=== PATIENT | female | born 1965 | race African-American/Black ===

== ENCOUNTER → 2020-11-27 01:20 | Outpatient (CLI) | payer BC, SELFPAY ==
[2020-11-28 14:16] LABS: SARS-CoV-2 RNA PCR Negative
--- NOTE | 2020-12-01 11:49 | W.PM.PROC2 ---
Procedure Note - Detailed Date of Procedure 12/01/20 Pre-op Diagnosis GSI Post-op Diagnosis same Procedure Performed Transobturator taping with cystoscopy Surgeon Rigoberto Maharaj MD Anesthesia general Findings intact bladder and patent ureters bilaterally Description of Procedure Patient was taken to the operating room with IV running and placed in a dorsal lithomtomy position. A ogdoy cather was placed to drain the bladder. attention was then turned to the bladder sling and which 2 Allis clamps were placed along the anterior vaginal wall beginning 1cm below the urethra and 3cm apart vertically a 2cm incision was made between Allis clamps on anterior vaginal mucosa in the periurethral tissue was dissected with the Metzenbaum scissors and blunt dissection to the level of the pubic bone on either side the midline. The obturator foramen on the right portions of the vagina well palpated bilaterally and injected with 1% lidocaine with epinephrine. And marked with a sterile marker. Stab incision was made in both areas. The obturator device hook was then introduced through the outer obturator foramen through the membrane entering alongside the bladder and urethra pushing the bladder and urethra out of the way and exiting through the vagina. The same procedure occurred on the left side. Cystoscope was performed with the 70 degree scope and the bladder dome was noted the posterior portion of the bladder with no visual suture noted. the obturator devices were manipulated and no areas of punctation were noted in the bladder arreola bilaterally. And there were bilateral ureteral jets noted with an intact urethra. The cystoscope was removed. The godoy was replaced. The vaginal taping was attached to the obturator removed and pulled through under proper tension with spacing with Gomez scissors. the vaginal mucosa was then closed with 2 0 Vicryl suture in a running locked fashion. The stab wound incisions were covered with surgical glue. The godoy catheter was remoeved. Estimated Blood Loss 20 Packing No Pathology none sent Condition stable Disposition PACU
== END ==
PROVIDERS: PCP Family Medicine; Visit Provider Obstetrics & Gynecology
DX: Z01.812 Encounter for preprocedural laboratory examination (principal); Z20.822 Contact with and (suspected) exposure to COVID-19
CPT/HCPCS: C9803; U0003; U0005

== ENCOUNTER 2020-11-27 08:15 | Outpatient (CLI) | payer BC, SELFPAY ==
--- NOTE | 2020-11-27 08:15 | ECG_ITS ---
Measurements Intervals [place] Rate: 77 P: 64 FL: 148 QRS: 23 QRSD: 90 T: 1 QT: 350 QTc: 397 Interpretive Statements SINUS RHYTHM DELAYED PRECORDIAL R/S TRANSITION BASELINE ARTIFACT- I, III, AVL BORDERLINE ECG Electronically Signed On 11-27-2020 8:34:04 CDT by Venancio Umana D.O.
== END 2020-11-27 08:16 | disposition home or self-care (01) ==
PROVIDERS: PCP Family Medicine; Visit Provider Obstetrics & Gynecology
DX: Z01.818 Encounter for other preprocedural examination (principal); E78.5 Hyperlipidemia, unspecified
CPT/HCPCS: 93005

== ENCOUNTER 2020-11-30 00:56 | Day surgery (SDC) | payer BC, SELFPAY ==
[2020-11-16 09:24] VITALS: BMI 32.2
[2020-11-30] VITALS (10 sets, daily range): BP systolic 110–150; BP diastolic 59–87; PULSE 62–89; RESP 12–16; TEMP 35.9–36.3; O2SAT 96–100; BMI 32.7
--- NOTE | 2020-11-30 09:27 | P.HP_ITS ---
History of Present Illness History of Present Illness Consent: Risks, benefits, and alternatives have been discussed and questions answered. Patient agrees to proceed with procedure. Chief complaint: stress incontinence Narrative: Jada Yates is a 54 year old female who presented to the office with leakage of urine with activities and cugh laughing and sneezing. Patient reports with weight loss and exercise gotten worse. [facility] Past Medical History Medical History (Updated 11/30/20 @ 09:37 by Rigoberto Maharaj MD) Asthma GSI (genuine stress incontinence), female Surgical History Surgical History (Updated 11/30/20 @ 09:37 by Rigoberto Maharaj MD) H/O: History of laparotomy History of sleeve gastrectomy S/P hysterectomy Social History Social History Smoking status: Never smoker Alcohol intake: current Alcohol use details: 1-2X/MONTH Substance use: never Substance use type: does not use Living arrangements: with family Spiritual care concerns: No Meds Home Medications and Allergies Home Medications Medication Instructions Recorded Confirmed Type albuterol 180 mcg INHALATION Q4H PRN 11/16/20 11/16/20 History atorvastatin 10 mg PO DAILY 11/16/20 11/16/20 History cetirizine [Zyrtec] 10 mg PO DAILY 11/16/20 11/16/20 History fluticasone propion-salmeterol 1 inh INHALATION BID 11/16/20 11/16/20 History [Advair Diskus] fluticasone propionate [Flonase] 2 spray INTRANASAL DAILY 11/16/20 11/16/20 History multivitamin 1 tablet PO DAILY 11/16/20 11/16/20 History omeprazole 40 mg PO BID 11/16/20 11/16/20 History tramadol 50 mg PO Q6H PRN 11/16/20 11/16/20 History Allergies Allergy/AdvReac Type Severity Reaction Status Date / Time NSAIDS (Non-Steroidal AdvReac Other Verified 11/16/20 09:46 Anti-Inflamma Exam Const: General: well developed and well groomed Nutritional Appearance: well nourished Orientation/consciousness: patient oriented x3 Resp: Auscultation: clear to auscultation bilaterally Cardio: Rate: regular rate Rhythm: regular rhythm GI: GI Palp: Yes Soft to palpation : Speculum Exam - Vagina: normal appearance of the vagina Speculum Exam - Cervix: Cervix absent Bimanual exam- vagina & uterus: uterus absent Assessment and Plan Assessment and plan (1) GSI (genuine stress incontinence), female: Code(s): N39.3 - Stress incontinence (female) (male) Status: Acute Assessment and Plan: scheduled for a transobturator taping with cystoscopy. Risk and benefits reviewed in detail. Patient agrees to proceed.
--- NOTE | 2020-11-30 11:20 | WPDANESEPPF ---
Anes - Initial Pre Proc Eval Procedure: Operation Date: 11/30/20 12:00 Proposed Procedures p Trans Obturator Taping - Rigoberto Maharaj MD Date/Time: 11/30/20 11:20 Surgeon: Rigoberto Maharaj MD Pre Op Diagnosis: stress incontinence Patient Data Age: 54 Gender: F Height: 1.57 m Weight: 81.2 kg Last Vital Signs Temp 35.9 C L 11/30/20 10:57 Pulse 74 11/30/20 10:57 Resp 16 11/30/20 10:57 BP 110/59 L 11/30/20 10:57 Pulse Ox 98 11/30/20 10:57 Allergies Allergy/AdvReac Type Severity Reaction Status Date / Time NSAIDS (Non-Steroidal AdvReac Other Verified 11/30/20 10:24 Anti-Inflamma Home Medications Medication Instructions Recorded Confirmed Type albuterol 180 mcg INHALATION Q4H PRN 11/16/20 11/16/20 History atorvastatin 10 mg PO DAILY 11/16/20 11/16/20 History cetirizine [Zyrtec] 10 mg PO DAILY 11/16/20 11/16/20 History fluticasone propion-salmeterol 1 inh INHALATION BID 11/16/20 11/30/20 History [Advair Diskus] fluticasone propionate [Flonase] 2 spray INTRANASAL DAILY 11/16/20 11/16/20 History multivitamin 1 tablet PO DAILY 11/16/20 11/30/20 History omeprazole 40 mg PO BID 11/16/20 11/16/20 History tramadol 50 mg PO Q6H PRN 11/16/20 11/16/20 History Patient hx anesthesia problems: none Family hx anesthesia problems: none [facility] Past Medical History Medical History Asthma GSI (genuine stress incontinence), female Surgical History Surgical History H/O: History of laparotomy History of sleeve gastrectomy S/P hysterectomy Social History Social History Smoking status: Never smoker Alcohol intake: current Alcohol use details: 1-2X/MONTH Substance use: never Substance use type: does not use Living arrangements: with family Spiritual care concerns: No Anes - Eval Final PreProcedure Day of Procedure 11/30/20 11:20 Patient weight: obese Heart: regular rate and rhythm Lungs: clear to auscultation Airway: Mallampati scale class II Neurological: alert and oriented Last oral intake: >/= 8 hours ASA classification: III Emergent: no Anesthetic plan: proceed Anesthesia type and monitoring: general LMA and standard monitoring Informed Consent: The patient's anesthetic plan and its attendant risks including airway fires due to piercings in her face and benefits were discussed with the patient/family/POA. Questions were solicited and answers provided to the satisfaction of the patient/family/POA.
[2020-11-30] MEDS: LACTATED RINGERS 1,000 ML 30 ML IV CONT ×2 (11:21→12:52)
--- NOTE | 2020-11-30 11:50 | WPDHPUPDATE1 ---
History and Physical Update Update Date/Time: 11/30/20 11:50 History and Physical has been reviewed, including an updated exam of the patient. There are NO changes in the patient's condition. Risks, benefits, and alternatives have been discussed and questions answered. Patient agrees to proceed with procedure.
[2020-11-30] MEDS: ceFAZolin 2 GM/D5W 50 ML 2 GM/50 ML BAG IVPB (11:56)
[2020-11-30] MEDS: GENTAMICIN SULFATE INJ 310 MG in DEXTROSE 5% 100 ML 97.96 MG IVPB (12:08)
[2020-11-30] MEDS: LIDO 1%/EPINEPHRINE 1:100,000 20 ML VIAL 10 ML INFILTRATE (12:22)
--- NOTE | 2020-11-30 12:57 | OP_ITS ---
This report was moved to the correct visit, [id number] on 12/04/20. Original report was signed by Rigoberto Maharaj MD on 12/01/20 1153. Procedure Note - Detailed Date of Procedure 12/01/20 Pre-op Diagnosis GSI Post-op Diagnosis same Procedure Performed Transobturator taping with cystoscopy Surgeon Rigoberto Maharaj MD Anesthesia general Findings intact bladder and patent ureters bilaterally Description of Procedure Patient was taken to the operating room with IV running and placed in a dorsal lithomtomy position. A godoy cather was placed to drain the bladder. attention was then turned to the bladder sling and which 2 Allis clamps were placed along the anterior vaginal wall beginning 1cm below the urethra and 3cm apart vertically a 2cm incision was made between Allis clamps on anterior vaginal mucosa in the periurethral tissue was dissected with the Metzenbaum scissors and blunt dissection to the level of the pubic bone on either side the midline. The obturator foramen on the right portions of the vagina well palpated bilaterally and injected with 1% lidocaine with epinephrine. And marked with a sterile marker. Stab incision was made in both areas. The obturator device hook was then introduced through the outer obturator foramen through the membrane entering alongside the bladder and urethra pushing the bladder and urethra out of the way and exiting through the vagina. The same procedure occurred on the left side. Cystoscope was performed with the 70 degree scope and the bladder dome was noted the posterior portion of the bladder with no visual suture noted. the obturator devices were manipulated and no areas of punctation were noted in the bladder arreola bilaterally. And there were bilateral ureteral jets noted with an intact urethra. The cystoscope was removed. The godoy was replaced. The vaginal taping was attached to the obturator removed and pulled through under proper tension with spacing with Gomez scissors. the vaginal mucosa was then closed with 2 0 Vicryl suture in a running locked fashion. The stab wound incisions were covered with surgical glue. The godoy catheter was remoeved. Estimated Blood Loss 20 Packing No Pathology none sent Condition stable Disposition PACU This dictation may have been done utilizing a voice recognition system. Attempts have been made to correct errors. However, there may be uncorrected grammatical, spelling, and recognition errors present. Report Initialized date/time: Rigoberto Maharaj MD 12/01/20 / 1153 Electronically signed by: Rigoberto Maharaj MD 12/01/20 1156 [facility]
[2020-11-30] MEDS: fentaNYL CITRATE INJ (*CRX) 100 MCG/2 ML VIAL 25 MCG IV PUSH ×4 (13:03→13:32)
[2020-11-30] MEDS: oxyCODONE HCL (*CRX) 5 MG TAB IR PO (14:22)
--- NOTE | 2020-12-25 11:04 | PM.OP ---
Procedure Note - Brief Procedure Note - Brief Pre-op diagnosis: stress incontinence Surgeon: Rigoberto Maharaj MD procedure 11/30/20 see operative noter
== END 2020-11-30 15:58 | disposition home or self-care (01) ==
PROVIDERS: PCP Family Medicine; Visit Provider Obstetrics & Gynecology
PROC: (CPT 57288; principal; 2020-11-30 12:00)
DX: N39.3 Stress incontinence (female) (male) (principal); J45.909 Unspecified asthma, uncomplicated; Z79.51 Long term (current) use of inhaled steroids; E66.9 Obesity, unspecified; Z68.32 Body mass index [BMI] 32.0-32.9, adult
CPT/HCPCS: 57288; A9270; C1771; J0690; J1100; J1580; J2250; J2405; J2704; J3010; J7030; J7120

== ENCOUNTER 2021-05-17 00:07 | Day surgery (SDC) | payer BC, SELFPAY ==
[2021-05-13 10:49] VITALS: BMI 33.0
--- NOTE | 2021-05-13 10:52 | SUR.PREOP ---
Report to the Outpatient Waiting Room, entrance under the green pavilion located off [facility], at time _1300_ on date _05/17/21_. OR Time: _1500 . - You and your visitor will be asked a series of questions to screen for COVID 19 for your protection. - A mask is required within the hospital. - Only one visitor is allowed at this time. Patient visitors will be guided where to wait when not with patient. Preoperative COVID Testing Requirements: No COVID Test needed if: (proof is required; if not received patient will have Rapid Test prior to entry) - Patient has received COVID Vaccine at least 14 days prior to procedure date or - Patient has positive COVID test result within last 90 days of surgery date. COVID Test needed if above criteria is not met If not COVID vaccinated a COVID test must be conducted within 72 hours of surgery and patient is asked to isolate self from time of testing until procedure. You will go to the [facility] for your COVID testing. The [facility] site is located at the corner of [address] from [facility]. You will only be called if COVID results are positive and your surgeon may reschedule your elective surgery date. Patients may have clear liquids (water, carbonated beverages, clear teas, apple juice) until 3 hours prior to surgery with a maximum of 20 ounces. - No food from midnight until time of surgery - Infants may have breast milk until 4 hours before surgery, infant formula 6 hours prior to surgery. - Children will be allowed to drink immediately following surgery. If applicable, please bring a bottle or sippy cup to assist with drinking. Juice, water, soda, and popsicles are readily available. For infants on formula, please bring formula the day of surgery. Pacifiers are allowed. Take the following medications with a SIP of water the morning of surgery: advair,nasal spray,bring albuterol inhaler_ Medications to discontinue per physician __vitamins Date to take last dose_05/14/21 Please no make-up, nail anguillan, hairspray, perfume, deodorant, or body powder the day of surgery. No jewelry (including any body piercings) or valuables the day of surgery, leave them at home. Please take a shower or bath the night before, or the morning of, surgery with an antibacterial soap. Wear comfortable, loose fitting clothing. Children are encouraged to wear pajamas. - Jewelry must be removed prior to entering the operating room. Rings and piercings that are not removed may be cut off. - The hospital will not accept responsibility for valuables. - Please leave all valuables, including medications, at home the day of surgery. If you are going home after surgery, a licensed tank truck driver must drive you home. - NO public transportation without another adult. - We recommend that an adult stay with you for 24 hours following discharge. - We also recommend that you do not drive, make important decision, drink alcoholic beverages, or take any drugs that were not prescribed by your health care provider for at least 24 hours after your discharge time. For Pediatric surgeries, we recommend two adults accompany the child home (only one inside the building at this time). Follow any additional instructions given to you from your surgeon. Telephone instructions given to ernestine calvo_[email or web address] asked if any additional questions and then verbalized understanding. Patient advised to call surgeon office or pre surgery nurse liaison [phone] if any additional questions.
[2021-05-17 10:18] VITALS: BP 134/83; PULSE 71; RESP 18; TEMP 36.1; O2SAT 100
--- NOTE | 2021-05-17 10:34 | WPDANESEPPF ---
Anes - Initial Pre Proc Eval Procedure: Operation Date: 05/17/21 12:00 Proposed Procedures p Excision Bladder Mesh - Rigoberto Maharaj MD Date/Time: 05/17/21 10:34 Surgeon: Rigoberto Maharaj MD Pre Op Diagnosis: Mesh Erosion Patient Data Age: 55 Gender: F Height: 1.57 m Weight: 85.1 kg Allergies Allergy/AdvReac Type Severity Reaction Status Date / Time NSAIDS (Non-Steroidal AdvReac Mild Other Verified 05/17/21 10:32 Anti-Inflamma Home Medications Medication Instructions Recorded Confirmed Type albuterol 180 mcg INHALATION PRN PRN 11/16/20 05/17/21 History atorvastatin 10 mg PO DAILY 11/16/20 05/17/21 History cetirizine [Zyrtec] 10 mg PO DAILY 11/16/20 05/17/21 History fluticasone propion-salmeterol 1 inh INHALATION BID 11/16/20 05/17/21 History [Advair Diskus] fluticasone propionate 2 spray INTRANASAL DAILY 11/16/20 05/17/21 History multivitamin 1 tablet PO DAILY 11/16/20 05/17/21 History omeprazole 40 mg PO BID 11/16/20 05/17/21 History tramadol 50 mg PO Q6H PRN 11/16/20 05/17/21 History Patient hx anesthesia problems: none Family hx anesthesia problems: none Results Review: All pre-operative results and documents have been reviewed as part of the pre-operative evaluation. [facility] Past Medical History Medical History (Updated 05/17/21 @ 10:36 by Geovanny Allan MD) Asthma Chronic GERD GSI (genuine stress incontinence), female Hyperlipidemia Obesity Surgical History Surgical History H/O: History of laparotomy History of sleeve gastrectomy S/P hysterectomy Social History Social History Smoking status: Never smoker Alcohol intake: current Drinks per week: 2 Alcohol use details: 1-2X/MONTH Substance use: never Substance use type: does not use Living arrangements: with family Spiritual care concerns: No Anes - Eval Final PreProcedure Day of Procedure 05/17/21 10:34 Patient weight: obese Heart: regular rate and rhythm Lungs: clear to auscultation and normal air movement Airway: Mallampati scale class II Neurological: alert and oriented Last oral intake: >/= 8 hours ASA classification: III Emergent: no Anesthetic plan: proceed Anesthesia type and monitoring: general LMA and ETT Results Review: All pre-operative results and documents have been reviewed as part of the pre-operative evaluation. Informed Consent: The patient's anesthetic plan and its attendant risks and benefits were discussed with the patient/family/POA. Questions were solicited and answers provided to the satisfaction of the patient/family/POA.
[2021-05-17] MEDS: LACTATED RINGERS 1,000 ML 30 ML IV CONT (10:45)
--- NOTE | 2021-05-17 12:46 | PM.HPGS ---
History of Present Illness History of Present Illness Consent: Risks, benefits, and alternatives have been discussed and questions answered. Patient agrees to proceed with procedure. Chief complaint: Mesh Erosion Narrative: Jada Yates is a 55 year old female s/p TOT 5 months ago noticed area of vagina tender with intercourse. Patient seen in office and noticed an area of erosion of mesh on right side of vaginal PMFSH Past Medical History Medical History (Updated 05/17/21 @ 12:49 by Rigoberto Maharaj MD) Asthma Chronic GERD Erosion of bladder suspension mesh GSI (genuine stress incontinence), female Hyperlipidemia Obesity Surgical History Surgical History H/O: History of laparotomy History of sleeve gastrectomy S/P hysterectomy Social History Social History Smoking status: Never smoker Alcohol intake: current Drinks per week: 2 Alcohol use details: 1-2X/MONTH Substance use: never Substance use type: does not use Living arrangements: with family Spiritual care concerns: No Meds Home Medications and Allergies Home Medications Medication Instructions Recorded Confirmed Type albuterol 180 mcg INHALATION PRN PRN 11/16/20 05/17/21 History atorvastatin 10 mg PO DAILY 11/16/20 05/17/21 History cetirizine [Zyrtec] 10 mg PO DAILY 11/16/20 05/17/21 History fluticasone propion-salmeterol 1 inh INHALATION BID 11/16/20 05/17/21 History [Advair Diskus] fluticasone propionate 2 spray INTRANASAL DAILY 11/16/20 05/17/21 History multivitamin 1 tablet PO DAILY 11/16/20 05/17/21 History omeprazole 40 mg PO BID 11/16/20 05/17/21 History tramadol 50 mg PO Q6H PRN 11/16/20 05/17/21 History Allergies Allergy/AdvReac Type Severity Reaction Status Date / Time NSAIDS (Non-Steroidal AdvReac Mild Other Verified 05/17/21 10:32 Anti-Inflamma Vital Signs Vital Signs - 24 hr 05/17/21 10:18 Temperature 36.1 C L Pulse Rate 71 Respiratory Rate 18 Blood Pressure 134/83 Pulse Oximetry 100 Exam Const: Orientation/consciousness: patient oriented x3 Resp: Auscultation: clear to auscultation bilaterally Cardio: Rhythm: regular rhythm GI: GI Palp: Yes Soft to palpation : Speculum Exam - Vagina: foreign body Bimanual exam- vagina & uterus: normal bimanual exam Assessment and Plan Assessment and plan (1) Erosion of bladder suspension mesh: Code(s): T83.718A - Erosion of other implanted mesh to organ or tissue, initial encounter Status: Acute Assessment and Plan: Plan excision of of eroded area of Mesh. Reviewed risk with patient.
--- NOTE | 2021-05-17 12:59 | WPDHPUPDATE1 ---
History and Physical Update Update Date/Time: 05/17/21 12:59 History and Physical has been reviewed, including an updated exam of the patient. There are NO changes in the patient's condition. Risks, benefits, and alternatives have been discussed and questions answered. Patient agrees to proceed with procedure.
[2021-05-17] MEDS: LIDO 1%/EPINEPHRINE/PF 1:200,000 30 ML VIAL 7 ML XX (13:57)
[2021-05-17 14:15] VITALS: BP 122/64; PULSE 84; RESP 16; O2SAT 98
[2021-05-17 14:45] VITALS: BP 104/63; PULSE 60; RESP 16; O2SAT 92
[2021-05-17 15:05] VITALS: BP 122/67; PULSE 80; RESP 16
--- NOTE | 2021-05-18 11:00 | W.PM.PROC2 ---
Procedure Note - Detailed Date of Procedure 05/18/21 Pre-op Diagnosis Mesh Erosion Post-op Diagnosis same Procedure Performed removal of vaginal mesh Surgeon Rigoberto Maharaj MD Anesthesia MAC Findings 1 cm area mesh in right upper fornix of vagina Description of Procedure Patient was taken to the operating room with IV running. She was prepped and draped in a normal fashion. A right angle retractor was placed into the posterior posterior aspect of the vagina upon bimanual exam in fairly 1cm area of exposed mesh in the vagina this area was grasped with pickups and incised with scissors. A repeat vaginal exam was performed and noted no other areas mesh exposure area was hemostatic and patient was taken to recovery room in stable condition.
== END 2021-05-17 15:25 | disposition home or self-care (01) ==
PROVIDERS: PCP Family Medicine; Visit Provider Obstetrics & Gynecology
PROC: 0TSD0ZZ Reposition Urethra, Open Approach (ICD-10-PCS; CPT 57295; principal; 2021-05-17 12:00)
DX: T83.718A Erosion of other implanted mesh to organ or tissue, initial encounter (principal); Y83.8 Other surgical procedures as the cause of abnormal reaction of the patient, or of later complication, without mention of misadventure at the time of the procedure; J45.909 Unspecified asthma, uncomplicated; E78.5 Hyperlipidemia, unspecified; K21.9 Gastro-esophageal reflux disease without esophagitis; Z98.84 Bariatric surgery status; Z79.51 Long term (current) use of inhaled steroids; E66.9 Obesity, unspecified; Z68.34 Body mass index [BMI] 34.0-34.9, adult
CPT/HCPCS: 57295; A9270; J1100; J2250; J2405; J2704; J3010; J7030; J7120